=== PATIENT | male | born 2005 | race Caucasian/White ===

== ENCOUNTER 2024-02-27 13:00 | Emergency (ER) | payer BC, SELFPAY ==
[2024-02-27 13:07] VITALS: BMI 24.4
[2024-02-27 13:08] VITALS: BP 121/65
[2024-02-27 13:33] LABS: Urine Albumin Negative (Neg - Trace); Urine Bilirubin Negative (Negative); Urine Character Clear (Clear); Urine Color Yellow; Urine Glucose Negative (Negative); Urine Ketone Negative (Negative); Urine Leukocyte Negative (Negative); Urine Nitrite Negative (Negative); Urine Occult Blood Negative (Negative); Urine Urobilinogen Negative (Neg - 1+)
--- NOTE | 2024-02-27 14:26 | ED.GENMED ---
History of Present Illness
General
Chief Complaint: Male Genito-Urinary Symptoms
Source: patient
Time Seen by Provider: 02/27/24 13:35
History of Present Illness
History of Present Illness:
18yoM with no significant past medical history presenting for evaluation of testicular pain. Symptoms began about 2 days ago. He reports pain in his bilateral testicles with standing. The pain resolves if he is sitting down. He states the testicles
appear normal. He has tried ibuprofen which helped slightly. His dog jumped on his lap a few hours before his symptoms began. He was seen at urgent care prior to arrival and was sent to the ED for evaluation. He denies any dysuria, penile discharge,
scrotal swelling, abdominal pain, flank pain, vomiting, fevers.
Phy Exam
General Physical Exam
General Presentation: well appearing and no apparent distress
General age: appears stated age
General Skin: warm and dry
General Habitus: normal
General Mental: alert
ENT Exam
ENT Exam: normocephalic
Pulmonary Exam
Pulmonary Exam: lungs clear
Genitourinary Exam Male
Exam Male: other (+Mild tenderness to bilateral testicles. No skin changes or edema. No palpable hernias. )
[place] Coma Scale
Eye Opening: Spontaneous
Verbal Response: Oriented
Motor Response: Obeys Commands
GCS Total Score: 15
Skin Exam
Skin Exam: normal color and warm/dry
Psychiatric Exam
Psychiatric Exam: normal mood/affect
Course
Orders/Labs/Results
Orders:
Orders
02/27/24 13:10
Urinalysis Reflex To Culture Urgent
Date Specimen was Collected: 02/27/24
Time Specimen was Collected: 13:12
Chlamydia/GC by PCR Urgent
RADHA Source: U
Specimen Description:
Source:: URINE
Date Specimen was Collected: 02/27/24
Time Specimen was Collected: 13:12
Comment: Add on by Raina Smith
02/27/24 13:12
Scrotum US [US Scrotum] Urgent
Comment:
Reason For Exam: testicular pain
02/27/24 14:56
Add On - Microbiology Urgent
Tests Added?: Chlamydia/GC by PCR
02/27/24 15:11
Ceftriaxone Sodium [Rocephin] 500 mg IM NOW STA
02/27/24 15:21
CefTRIAXone [Rocephin] 500 mg IV NOW STA
Vital Signs
Initial and Last Documented VS:
Initial Vital Signs
Temp Pulse Resp BP Pulse Ox
98.3 F 85 18 121/65 100
02/27/24 13:08 02/27/24 13:08 02/27/24 13:08 02/27/24 13:08 02/27/24 13:08
Last Documented Vital Signs
Temp Pulse Resp BP Pulse Ox
98.3 F 83 18 105/57 100
02/27/24 13:08 02/27/24 15:55 02/27/24 15:55 02/27/24 15:55 02/27/24 15:55
MDM/Problems Addressed
Differential Diagnosis Includes:
18yoM here with bilateral testicular pain x 2 days. Worse with standing, improves with sitting. No urinary complaints. Sent here by urgent care. VSS. There is mild bilateral testicular tenderness on exam without scrotal swelling or skin changes.
Differential diagnosis includes but is not limited to: orchitis, epididymitis, hydrocele, less likely testicular torsion
Initial ED plan: Check UA and scrotal ultrasound.
*Critical Care Note
Total Time (30-74mins, 75-104mins- exclusive of procedures): Not Applicable
Update Note
Update Note:
UA bland without signs of infection. Scrotal ultrasound shows evidence of bilateral epididymoorchitis. GC/chlamydia testing added. Patient given dose of Rocephin in the ED and was started on a course of doxycycline. Supportive care discussed
including scrotal elevation and as needed ibuprofen. He was advised to follow-up with urology and ED return precautions discussed. He expressed understanding and is agreement with plan. He was discharged in stable condition.
ED Attending Note
-
Portions of this chart may have been created with voice recognition software.� Occasional wrong word or��sound alike� substitutions may have occurred due to the inherent limitations of voice recognition software.
Discharge Plan
Departure
Patient Disposition: Home (Routine Discharge)
Date of Disposition: 02/27/24
Time of Disposition: 15:11
Patient with high blood pressure during this ER visit?: No
Discharge Problem:
Acute epididymo-orchitis
Instructions: Epididymitis and Orchitis
Prescriptions:
New
doxycycline hyclate 100 mg capsule
100 mg PO BID Qty: 20 0RF
Referrals:
Robbie Schmidt MD [Active] -
UNKNOWN - PT DOES,NOT KNOW [Family Provider] -
Activity Restrictions/Additional Instructions:
Take antibiotics as prescribed.
Elevate your scrotum and apply ice to help with pain. Take ibuprofen 600mg every 6 hours as needed for pain.
Please follow-up with urology. Return to the ER with any worsening symptoms or fevers.
Interventions
Interventions:
*Risk Screen - Suicide Last Done: 02/27/24 13:54
*General Assessment Last Done: 02/27/24 13:54
*Neglect/Abuse Screening Last Done: 02/27/24 13:54
ED- Fall Risk Assessment Last Done: 02/27/24 13:54
*ED COVID-19 Vaccine History Last Done: 02/27/24 13:54
*Nursing Disposition Last Done: 02/27/24 15:55
ED-Male Genitourinary Assessment Last Done: 02/27/24 13:54
Discharge Date and Time
Discharge Date/Time: 02/27/24 15:56
Print Language: [id number]
[2024-02-27] MEDS: ROCEPHIN 500 MG IV (15:45)
[2024-02-27 15:55] VITALS: BP 105/57
== END 2024-02-27 15:56 | disposition home or self-care (01) ==
LOC: EMR 13:00
PROVIDERS: Emergency Medicine; EMERGENCY PHYSICIAN Emergency Medicine
DX: N45.3 Epididymo-orchitis (principal); N50.812 Left testicular pain; N50.811 Right testicular pain; Z88.1 Allergy status to other antibiotic agents; Z88.0 Allergy status to penicillin
CPT/HCPCS: 99284; 96374; 76870; 81003; 87491; 87591; 93976